=== PATIENT | male | born 1945 | race Caucasian/White ===

== ENCOUNTER 2017-03-21 05:59 | Day surgery (SDC) | payer MEDICARE, OTHER ==
[2017-03-21] MEDS ORDERED: Dextrose 5%-Lactated Ringers 1,000 ML IV SCH (06:30)
[2017-03-21] MEDS ORDERED: fentaNYL 100 MCG/2 ML SDV ONE (07:05)
[2017-03-21] MEDS ORDERED: Propofol 200 MG/20 ML SDV ONE (07:05)
[2017-03-21] MEDS ORDERED: Midazolam 1 MG/ML 2 ML SDV ONE (07:06)
[2017-03-21] MEDS ORDERED: Glycopyrrolate 0.2 MG/ML 2 ML SYRINGE IVPUSH ONE (07:15)
[2017-03-21 08:42] VITALS: BP 118/48
--- NOTE | 2017-04-01 16:16 | OR ---
DATE OF PROCEDURE: 03/21/2017 PREOPERATIVE DIAGNOSIS: Laryngopharyngeal dysphagia. POSTOPERATIVE DIAGNOSES: 1. Laryngopharyngeal dysphagia without gross hypopharyngeal, laryngeal, or upper esophageal sphincter abnormalities. 2. Small hiatal hernia with minimal esophageal inflammation. 3. Mild duodenitis. OPERATIVE PROCEDURES: Esophagogastroduodenoscopy with: 1. Biopsies of antrum for CLOtest. 2. Biopsies of esophagogastric junction for histologic evaluation. ANESTHESIA: IV sedation. INDICATION FOR PROCEDURE: This is a 71-year-old presenting with some increasing laryngopharyngeal dysphagia. Plan is to proceed with upper GI endoscopy with biopsies and/or dilation as indicated. Potential risks including bleeding and perforation were discussed, and the patient wishes to proceed. DETAILS OF PROCEDURE: The patient was taken to the operating room and placed in a left lateral decubitus position. IV sedation was administered, after which the upper GI endoscope was passed orally through the length of the esophagus and into the stomach with retroflexion view of the fundus, and thereafter through the pyloric channel into the proximal duodenum. FINDINGS: Included normal hypopharynx, larynx, and upper esophageal sphincter. The esophageal body was otherwise unremarkable. There was a small hiatal hernia present with a very minimal if any gross inflammation at esophagogastric junction. Within the stomach, there were no abnormalities noted, and there was some mild patchy redness within the duodenal bulb which normalized beyond that level within the remainder of the duodenum. At this point, biopsies were taken from the antrum and sent for CLOtest for H. pylori. Multiple biopsies were obtained from the esophagogastric junction to rule out any Townsend esophagus. Minimal bleeding from the biopsy sites was seen and the procedure then concluded. The patient would appear not likely to have reflux as a cause for his laryngopharyngeal dysphagia. He has been on longstanding Nexium, and this appears to be controlling the reflux fairly well. We will fix up the patient for x-ray swallow study and speech pathology evaluation and follow up with Dr. Billy. Bethel Pereyra MD /[id number]
== END 2017-03-21 09:24 | disposition home or self-care (01) ==
LOC: JP.SDS 05:59
PROVIDERS: ATTEND Surgery
DX: R13.10 Dysphagia, unspecified (principal); K29.80 Duodenitis without bleeding; K44.9 Diaphragmatic hernia without obstruction or gangrene
CPT/HCPCS: 43239; 87081; 88305; J2250; J2704; J3010; J7042

== ENCOUNTER 2018-11-30 07:31 | Day surgery (SDC) | payer MEDICARE, OTHER ==
[2018-11-30] MEDS ORDERED: fentaNYL 100 MCG/2 ML SDV ONE (07:42)
[2018-11-30] MEDS ORDERED: Propofol 200 MG/20 ML SDV ONE (07:42)
[2018-11-30] MEDS ORDERED: Lactated Ringers 1,000 ML IV SCH (08:15)
[2018-11-30] MEDS ORDERED: Midazolam 1 MG/ML 2 ML SDV ONE (08:24)
[2018-11-30 09:51] VITALS: BP 137/96
--- NOTE | 2018-11-30 10:39 | OR ---
DATE OF PROCEDURE: 11/30/2018 PREOPERATIVE DIAGNOSIS: History of colon polyps. POSTOPERATIVE DIAGNOSES: Unremarkable colonoscopy. PROCEDURE: Colonoscopy to the cecum. SURGEON: Emmett Lundberg MD ANESTHESIA: IV anesthesia with monitored anesthesia care. INDICATION: This 73-year-old white male is here for a colonoscopy. He says his last colonoscopic exam was done about 3 years ago. It appears it was done in 2015. He has a history of colon polyps. In 2015, they found a hyperplastic polyp. I do not have previous records to see what kind of polyps he had prior to that. I counseled him for a colonoscopy with possible biopsy and/or polypectomy, including risks and alternatives, and he gave his informed consent to proceed. PROCEDURE IN DETAIL: The patient was placed in the left lateral decubitus position. IV anesthesia was administered by the Anesthesia Service. Time-out was held. A rectal exam was performed, which was unremarkable. The flexible video Olympus colonoscope was introduced through his anus, up his rectum, and out his colon all the way to the cecum. Once the cecum was reached, the scope was slowly withdrawn examining the mucosa throughout. No mucosal abnormalities were noted. The scope was retroflexed in the rectum with the distal rectum appearing unremarkable. The scope was straightened and removed. He tolerated the procedure well. Emmett Lundberg MD /[id number] MTDD
== END 2018-11-30 10:25 | disposition home or self-care (01) ==
LOC: JP.SDS 07:31
PROVIDERS: ATTEND Surgery
DX: Z12.11 Encounter for screening for malignant neoplasm of colon (principal); Z87.19 Personal history of other diseases of the digestive system; K21.9 Gastro-esophageal reflux disease without esophagitis; Z88.0 Allergy status to penicillin; Z88.2 Allergy status to sulfonamides
CPT/HCPCS: J2250; J2704; J3010; J7120

== ENCOUNTER 2024-07-21 06:36 | Day surgery (SDC) | payer MEDICARE ==
[2024-07-21] MEDS ORDERED: Propofol 200 MG/20 ML SDV ONE ×2 (06:58→08:25)
[2024-07-21] MEDS ORDERED: fentaNYL 50 MCG/ML SDV ONE (06:58)
[2024-07-21] MEDS: Sodium Chloride 0.9% 1,000 ML IV SCH (07:00)
[2024-07-21 09:42] VITALS: BP 145/80; PULSE 71
[2024-07-21] MEDS ORDERED: Sodium Chloride 0.9% 10 ML Syringe FLUSH PRN (11:48)
[2024-07-21] MEDS ORDERED: Iopamidol 612 MG/ML 30 ML SDV PO ONE (11:48)
[2024-07-21] MEDS ORDERED: Iopamidol 612 MG/ML 100 ML Bottle IV SCH (12:00)
[2024-07-21] MEDS ORDERED: Sodium Chloride 0.9% 100 ML IV SCH (12:00)
== END 2024-07-21 12:30 | disposition home or self-care (01) ==
LOC: JP.SDS 06:36
PROVIDERS: ATTEND Surgery
DX: D12.3 Benign neoplasm of transverse colon (principal); C17.0 Malignant neoplasm of duodenum; D64.9 Anemia, unspecified; K31.7 Polyp of stomach and duodenum; K22.10 Ulcer of esophagus without bleeding; K57.30 Diverticulosis of large intestine without perforation or abscess without bleeding; K21.9 Gastro-esophageal reflux disease without esophagitis
CPT/HCPCS: 00813; 43239; 45385; 74177; 88305; 88312; 88341; 88342; J2704; J3010; J7030

== ENCOUNTER 2024-10-10 18:42 | Emergency (ER) | payer MEDICARE ==
[2024-10-10 18:53] VITALS: BP 107/73; PULSE 88
[2024-10-10 19:17] LABS: HEMATOCRIT 38.7 % (38.4-49.7); HEMOGLOBIN 12.3 g/dL (12.9-16.9); MEAN CORPUSCULAR HEMOGLOBIN 25.9 pg (31.6-35.5); MEAN CORPUSCULAR HGB CONC 31.8 g/dL (31.6-35.5); MEAN CORPUSCULAR VOLUME 81.5 fL (81.4-99.0); PLATELET COUNT,PLT 384 K/uL (130-375); RED BLOOD CELL COUNT 4.75 M/uL (4.14-5.76)
[2024-10-10 19:40] LABS: ALANINE AMINOTRANSFERASE,ALT 107 U/L (12-78); ALBUMIN 3.9 g/dL (3.4-5.0); ALKALINE PHOSPHATASE 262 U/L (46-116); ASPARTATE AMNIOTRANSFERASE,AST 56 U/L (15-37); BILIRUBIN TOTAL 0.9 mg/dL (0.2-1.0); BLOOD UREA NITROGEN,BUN 33 mg/dL (7-18); CALCIUM 10.1 mg/dL (8.5-10.1); CARBON DIOXIDE,CO2 42 mmol/L (21-32); CHLORIDE,CL 85 mmol/L (100-108); CREATININE 1.5 mg/dL (0.8-1.3); EST CRCL DRUG DOSING (CG) 39.04 mL/min; ESTIMATED GFR 47 mL/min (>60); GLUCOSE RANDOM 155 mg/dL (74-106); PROTEIN TOTAL,TP 7.9 g/dL (6.4-8.2); SODIUM,NA 134 mmol/L (140-148)
[2024-10-10 19:41] LABS: ANION GAP 9.7 mmol/L (5.0-14.0); POTASSIUM,K 2.7 mmol/L (3.6-5.2)
[2024-10-10] MEDS ORDERED: Sodium Chloride 0.9% 1,000 ML IV ONE (20:03)
[2024-10-10 20:18] LABS: BAND PERCENT MAN 4 % (5-11); LYMPHOCYTES PERCENT MAN 47 % (24-44); MONOCYTES PERCENT MAN 4 % (2-6); SEG NEUTROPHILS PERCENT MAN 45 % (36-66)
[2024-10-10] MEDS: Potassium Chloride 10% 20 MEQ/15 ML Soln 15 ML UD Cup PO ONE ×3 (20:35→20:52)
[2024-10-10 21:08] LABS: APPEARANCE,URINE CLEAR (CLEAR); BILIRUBIN,URINE NEGATIVE (NEGATIVE); COLOR,URINE OTHER (YELLOW); GLUCOSE,URINE NEGATIVE (NEGATIVE); KETONES,URINE NEGATIVE (NEGATIVE); LEUKOCYTE ESTERASE,URINE NEGATIVE (NEGATIVE); NITRITE,URINE NEGATIVE (NEGATIVE); OCCULT BLOOD,URINE NEGATIVE (NEGATIVE); PH,URINE 8.5 (5.0-8.0); PROTEIN,URINE 100 mg/dL (NEGATIVE); UROBILINOGEN,URINE 0.2 EU/dL (0.2-1.0)
[2024-10-10 21:17] LABS: BACTERIA,URINE RARE; EPITHELIAL CELLS,URINE NOT SEEN; RBC,URINE 0-5 (0-5); WBC,URINE 0-5 (0-5)
[2024-10-10 21:18] LABS: AMORPHOUS SEDIMENT,URINE RARE; MUCUS,URINE MODERATE
[2024-10-10] MEDS: Potassium Chloride 20 MEQ in Premix Bag 1 BAG IV ONE (21:24)
== END 2024-10-10 21:26 | disposition home or self-care (01) ==
LOC: JP.ED 18:42
DX: N17.9 Acute kidney failure, unspecified (principal); E87.6 Hypokalemia; E86.0 Dehydration; D72.829 Elevated white blood cell count, unspecified; J45.909 Unspecified asthma, uncomplicated; Z90.89 Acquired absence of other organs; Z88.0 Allergy status to penicillin; Z88.2 Allergy status to sulfonamides; Z91.018 Allergy to other foods; Z79.4 Long term (current) use of insulin; Z79.899 Other long term (current) drug therapy
CPT/HCPCS: 36415; 51702; 80053; 81001; 85025; 99283; 99284; A9270

== ENCOUNTER 2024-10-16 15:42 | Emergency (ER) | payer MEDICARE ==
[2024-10-16 17:59] LABS: HEMATOCRIT 35.4 % (38.4-49.7); HEMOGLOBIN 11.7 g/dL (12.9-16.9); MEAN CORPUSCULAR HEMOGLOBIN 27.1 pg (31.6-35.5); MEAN CORPUSCULAR HGB CONC 33.1 g/dL (31.6-35.5); MEAN CORPUSCULAR VOLUME 82.1 fL (81.4-99.0); PLATELET COUNT,PLT 275 K/uL (130-375); RED BLOOD CELL COUNT 4.31 M/uL (4.14-5.76); WHITE BLOOD CELL COUNT,WBC 16.5 K/uL (3.2-11.0)
[2024-10-16 18:21] LABS: CALCIUM 9.7 mg/dL (8.5-10.1); EST CRCL DRUG DOSING (CG) 59.24 mL/min
[2024-10-16 18:35] LABS: ANION GAP 5.4 mmol/L (5.0-14.0); POTASSIUM,K 2.4 mmol/L (3.6-5.2)
[2024-10-16 18:53] LABS: ATYPICAL LYMPHOCYTES MODERATE; BASOPHILS ABSOLUTE MAN 0.17 K/uL (0.00-0.10); BASOPHILS PERCENT MAN 1 % (0-1); EOSINOPHILS ABSOLUTE MAN 0.33 K/uL (0.00-0.40); EOSINOPHILS PERCENT MAN 2 % (2-4); LYMPHOCYTES ABSOLUTE MAN 7.92 K/uL (0.8-3.3); LYMPHOCYTES PERCENT MAN 48 % (24-44); MONOCYTES ABSOLUTE MAN 0.66 K/uL (0.20-0.90); MONOCYTES PERCENT MAN 4 % (2-6); NEUTROPHILS ABSOLUTE MAN 7.43 K/uL (1.0-7.6); SEG NEUTROPHILS PERCENT MAN 45 % (36-66)
[2024-10-16] MEDS: Potassium Chloride 20 MEQ Tab.ER PO ONE (19:42)
[2024-10-16] MEDS: Acetaminophen 500 MG Tab PO ONE (19:42)
[2024-10-16] MEDS: Lactated Ringers 1,000 ML IV ONE (19:43)
[2024-10-16] MEDS: Potassium Chloride 20 MEQ in Premix Bag 1 BAG IV ONE (19:43)
[2024-10-16 21:22] LABS: APPEARANCE,URINE CLEAR (CLEAR); BILIRUBIN,URINE NEGATIVE (NEGATIVE); COLOR,URINE YELLOW (YELLOW); GLUCOSE,URINE NEGATIVE (NEGATIVE); KETONES,URINE NEGATIVE (NEGATIVE); LEUKOCYTE ESTERASE,URINE NEGATIVE (NEGATIVE); NITRITE,URINE NEGATIVE (NEGATIVE); OCCULT BLOOD,URINE NEGATIVE (NEGATIVE); PH,URINE 8.5 (5.0-8.0); PROTEIN,URINE 100 mg/dL (NEGATIVE); UROBILINOGEN,URINE 0.2 EU/dL (0.2-1.0)
[2024-10-16 21:40] LABS: AMORPHOUS SEDIMENT,URINE RARE; BACTERIA,URINE NOT SEEN; EPITHELIAL CELLS,URINE RARE; MUCUS,URINE NOT SEEN; RBC,URINE NOT SEEN (0-5); WBC,URINE 0-5 (0-5)
[2024-10-16 21:51] VITALS: BP 116/73; PULSE 51
== END 2024-10-16 22:38 | disposition home or self-care (01) ==
LOC: JP.ED 15:42
DX: E87.6 Hypokalemia (principal); J45.909 Unspecified asthma, uncomplicated; K21.9 Gastro-esophageal reflux disease without esophagitis; Z79.899 Other long term (current) drug therapy; Z79.4 Long term (current) use of insulin; Z91.018 Allergy to other foods; Z88.0 Allergy status to penicillin; Z88.2 Allergy status to sulfonamides
CPT/HCPCS: 36415; 71045; 80048; 81001; 83605; 85025; 96365; 96366; 99283; A9270; J1642; J3480; J7120

== ENCOUNTER 2024-11-16 10:35 | Emergency (ER) | payer MEDICARE ==
[2024-11-16 11:54] LABS: HEMATOCRIT 36.8 % (38.4-49.7); HEMOGLOBIN 12.5 g/dL (12.9-16.9); MEAN CORPUSCULAR VOLUME 88.2 fL (81.4-99.0); PLATELET COUNT,PLT 431 K/uL (130-375); RED BLOOD CELL COUNT 4.17 M/uL (4.14-5.76)
[2024-11-16 12:15] LABS: ALANINE AMINOTRANSFERASE,ALT 51 U/L (12-78); ALKALINE PHOSPHATASE 145 U/L (46-116); ASPARTATE AMNIOTRANSFERASE,AST 40 U/L (15-37); BILIRUBIN TOTAL 0.7 mg/dL (0.2-1.0); BLOOD UREA NITROGEN,BUN 66 mg/dL (7-18); CALCIUM 9.7 mg/dL (8.5-10.1); CHLORIDE,CL 70 mmol/L (100-108); CREATININE 1.8 mg/dL (0.8-1.3); EST CRCL DRUG DOSING (CG) 31.17 mL/min; ESTIMATED GFR 38 mL/min (>60); GLUCOSE RANDOM 150 mg/dL (74-106); SODIUM,NA 129 mmol/L (140-148)
[2024-11-16 12:18] LABS: LACTIC ACID 2.1 mmol/L (0.4-2.0)
[2024-11-16 12:39] LABS: ANION GAP -11.9 mmol/L (5.0-14.0); CARBON DIOXIDE,CO2 73 mmol/L (21-32); POTASSIUM,K 2.1 mmol/L (3.6-5.2)
[2024-11-16 12:45] LABS: LYMPHOCYTES ABSOLUTE MAN 10.89 K/uL (0.8-3.3); LYMPHOCYTES PERCENT MAN 33 % (24-44); MONOCYTES ABSOLUTE MAN 0.99 K/uL (0.20-0.90); MONOCYTES PERCENT MAN 3 % (2-6); NEUTROPHILS ABSOLUTE MAN 21.12 K/uL (1.0-7.6); SEG NEUTROPHILS PERCENT MAN 64 % (36-66)
[2024-11-16 12:46] LABS: ATYPICAL LYMPHOCYTES FEW
[2024-11-16 12:54] LABS: BICARBONATE,ARTERIAL 65.1 mmol/L (22.0-26.0); CARBOXYHEMOGLOBIN 3.1 % (0.0-1.6); METHEMOGLOBIN 0.8 %; O2 SATURATION ARTERIAL 96.8 % (95.0-98.0); PCO2 ARTERIAL 60.9 mmHg (35.0-42.0); PO2 ARTERIAL 70.6 mmHg (75.0-100.0); TOTAL HEMOGLOBIN 12.6 g/dL (13.5-18.0)
[2024-11-16] MEDS: Potassium Chloride 10 MEQ in Premix Bag 1 BAG IV ONE ×2 (13:25→18:26)
[2024-11-16] MEDS: Meropenem 1 GM in Sodium Chloride 0.9% 100 ML IV ONE (13:25)
[2024-11-16] MEDS: Sodium Chloride 0.9% 1,000 ML IV ONE ×3 (13:25→18:25)
[2024-11-16] MEDS: Sodium Chloride 0.9% 10 ML Syringe FLUSH PRN (13:26)
[2024-11-16] MEDS: Acetaminophen Soln 650 MG/20.3 ML UD Cup PO ONE (13:58)
[2024-11-16] MEDS: LORazepam 2 MG/ML SDV IVPUSH ONE (18:27)
[2024-11-16] MEDS ORDERED: Iopamidol 612 MG/ML 100 ML Bottle IV SCH (18:30)
[2024-11-16] MEDS ORDERED: Sodium Chloride 0.9% 80 ML IV SCH (18:30)
[2024-11-16 18:36] VITALS: BP 112/65; PULSE 73
== END 2024-11-16 21:24 ==
LOC: JP.ED 10:35
DX: N17.9 Acute kidney failure, unspecified (principal); E86.0 Dehydration; E87.6 Hypokalemia; E87.3 Alkalosis; J45.909 Unspecified asthma, uncomplicated; Z88.0 Allergy status to penicillin; Z88.2 Allergy status to sulfonamides; Z91.018 Allergy to other foods; Z79.4 Long term (current) use of insulin; Z79.899 Other long term (current) drug therapy
CPT/HCPCS: 36415; 36600; 51702; 70450; 71045; 72125; 76377; 80053; 82803; 83605; 83735; 84145; 85025; 87040; 93005; 93010; 96361; 96365; 96366; 96367; 96368; 96375; 99285; A9270; J2060; J2185; J3480; J3490; J7030

== ENCOUNTER 2025-04-24 13:46 | Emergency (ER) | payer MEDICARE ==
[2025-04-24 15:27] LABS: HEMATOCRIT 41.7 % (38.4-49.7); HEMOGLOBIN 14.1 g/dL (12.9-16.9); MEAN CORPUSCULAR HEMOGLOBIN 31.5 pg (31.6-35.5); MEAN CORPUSCULAR HGB CONC 33.8 g/dL (31.6-35.5); MEAN CORPUSCULAR VOLUME 93.3 fL (81.4-99.0); PLATELET COUNT,PLT 218 K/uL (130-375); RED BLOOD CELL COUNT 4.47 M/uL (4.14-5.76); WHITE BLOOD CELL COUNT,WBC 19.5 K/uL (3.2-11.0)
[2025-04-24 15:41] LABS: APPEARANCE,URINE CLEAR (CLEAR); BILIRUBIN,URINE NEGATIVE (NEGATIVE); COLOR,URINE YELLOW (YELLOW); GLUCOSE,URINE NEGATIVE (NEGATIVE); KETONES,URINE NEGATIVE (NEGATIVE); LEUKOCYTE ESTERASE,URINE NEGATIVE (NEGATIVE); NITRITE,URINE NEGATIVE (NEGATIVE); OCCULT BLOOD,URINE NEGATIVE (NEGATIVE); PH,URINE 8.5 (5.0-8.0); PROTEIN,URINE NEGATIVE (NEGATIVE); UROBILINOGEN,URINE 0.2 EU/dL (0.2-1.0)
[2025-04-24 15:50] LABS: ALANINE AMINOTRANSFERASE,ALT 49 U/L (12-78); ALBUMIN 3.5 g/dL (3.4-5.0); ALKALINE PHOSPHATASE 179 U/L (46-116); ASPARTATE AMNIOTRANSFERASE,AST 29 U/L (15-37); BAND ABSOLUTE MAN 0.59 K/uL; BAND PERCENT MAN 3 % (5-11); BILIRUBIN TOTAL 0.6 mg/dL (0.2-1.0); BLOOD UREA NITROGEN,BUN 16 mg/dL (7-18); CARBON DIOXIDE,CO2 26 mmol/L (21-32); CHLORIDE,CL 100 mmol/L (100-108); CREATININE 0.8 mg/dL (0.8-1.3); EST CRCL DRUG DOSING (CG) 79.53 mL/min; ESTIMATED GFR 90 mL/min (>60); GLUCOSE RANDOM 159 mg/dL (74-106); LYMPHOCYTES ABSOLUTE MAN 7.22 K/uL (0.8-3.3); LYMPHOCYTES PERCENT MAN 37 % (24-44); METAMYELOCYTE PERCENT MAN 1 %; MONOCYTES ABSOLUTE MAN 0.59 K/uL (0.20-0.90); MONOCYTES PERCENT MAN 3 % (2-6); MYELOCYTE ABSOLUTE MAN 0.39; MYELOCYTE PERCENT MAN 2 %; NEUTROPHILS ABSOLUTE MAN 10.53 K/uL (1.0-7.6); POTASSIUM,K 4.1 mmol/L (3.6-5.2); PROTEIN TOTAL,TP 6.9 g/dL (6.4-8.2); SEG NEUTROPHILS PERCENT MAN 54 % (36-66); SODIUM,NA 136 mmol/L (140-148)
[2025-04-24 15:51] LABS: ATYPICAL LYMPHOCYTES RARE
[2025-04-24 15:56] LABS: CALCIUM 9.4 mg/dL (8.5-10.1)
[2025-04-24 15:58] LABS: BACTERIA,URINE NOT SEEN; EPITHELIAL CELLS,URINE RARE; RBC,URINE NOT SEEN (0-5); WBC,URINE 0-5 (0-5)
[2025-04-24 15:59] LABS: AMORPHOUS SEDIMENT,URINE NOT SEEN; MUCUS,URINE RARE
[2025-04-24 15:59] LABS: ANION GAP 14.1 mmol/L (5.0-14.0)
[2025-04-24] MEDS: Sodium Chloride 0.9% 1,000 ML IV SCH (16:18)
[2025-04-24] MEDS: Sodium Chloride 0.9% 10 ML Syringe FLUSH ONE (16:19)
[2025-04-24] MEDS: Ibuprofen 400 MG Tab PO ONE (16:19)
[2025-04-24] MEDS: Iopamidol 612 MG/ML 100 ML Bottle IV PRN (16:26)
[2025-04-24] MEDS: Sodium Chloride 0.9% 80 ML IV SCH (16:26)
[2025-04-24 16:57] VITALS: BP 126/75; PULSE 99
== END 2025-04-24 17:56 | disposition home or self-care (01) ==
LOC: JP.ED 13:46
DX: K52.9 Noninfective gastroenteritis and colitis, unspecified (principal); J45.909 Unspecified asthma, uncomplicated; Z86.16 Personal history of COVID-19; Z88.0 Allergy status to penicillin; Z88.2 Allergy status to sulfonamides; Z91.018 Allergy to other foods; Z79.4 Long term (current) use of insulin; Z79.899 Other long term (current) drug therapy
CPT/HCPCS: 36415; 74177; 80053; 81001; 84484; 85025; 93005; 93010; 96360; 96361; 99284; A9270; J7030; Q9967

== ENCOUNTER 2025-10-13 08:42 | Day surgery (SDC) | payer MEDICARE ==
[2025-10-13] MEDS: Sodium Chloride 0.9% 10 ML Syringe FLUSH PRN (09:20)
[2025-10-13 10:08] VITALS: BP 138/78; PULSE 58
== END 2025-10-13 10:15 | disposition home or self-care (01) ==
LOC: JP.SDS 08:42
PROVIDERS: ATTEND Ophthalmology
DX: H25.12 Age-related nuclear cataract, left eye (principal); H57.03 Miosis; Z88.0 Allergy status to penicillin; Z88.2 Allergy status to sulfonamides; Z79.4 Long term (current) use of insulin; Z91.018 Allergy to other foods; Z79.899 Other long term (current) drug therapy
CPT/HCPCS: 66982; V2632; 00142-QZ